=== PATIENT | male | born 1940 | race Caucasian/White ===

== ENCOUNTER 2018-03-23 06:29 | Day surgery (SDC) | payer MEDICARE, OTHER ==
[2018-03-22 10:39] VITALS: BMI 30.4
[2018-03-23] MEDS ORDERED: Heparin 1000 UNIT/NS 500ML(OR) 500 ML ONE ×2 (07:34→07:35)
[2018-03-23] MEDS ORDERED: Midazolam HCl 2 mg/2 ml Vial ONE (08:41)
[2018-03-23] MEDS ORDERED: Verapamil 5 MG/2 ML VIAL ONE (08:42)
[2018-03-23] MEDS ORDERED: Nitroglycerin 100MG/250ML BOT 250 ML ONE (08:42)
[2018-03-23] MEDS ORDERED: Heparin 10,000 UNITS/1 ML VIAL ONE (08:42)
[2018-03-23] MEDS ORDERED: Fentanyl 100 MCG/2 ML VIAL ONE (08:42)
[2018-03-23] MEDS ORDERED: Iopamidol 370 76% 100 ML VIAL ONE (10:45)
--- NOTE | 2018-03-23 15:17 | EKG ---
Test Reason : PREOP Blood Pressure : / mmHG Vent. Rate : 051 BPM Atrial Rate : 051 BPM P-R Int : 210 ms QRS Dur : 092 ms QT Int : 438 ms P-R-T Axes : 061 013 002 degrees QTc Int : 403 ms Sinus bradycardia with 1st degree A-V block Otherwise normal ECG Confirmed by LISANDRA LOPEZ, BRIDGET ([id number]) on 03/23/2018 3:17:05 PM Referred By: CAROLYNN Confirmed By:BRIDGET FRY MD
== END 2018-03-23 11:55 | disposition home or self-care (01) ==
LOC: CCL 06:29
PROVIDERS: ATTEND Internal Medicine Cardiovascular Disease
PROC: 4A023N7 Measurement of Cardiac Sampling and Pressure, Left Heart, Percutaneous Approach (ICD-10-PCS; principal; 2018-03-23)
PROC: B2111ZZ Fluoroscopy of Multiple Coronary Arteries using Low Osmolar Contrast (ICD-10-PCS; 2018-03-23)
DX: I25.10 Atherosclerotic heart disease of native coronary artery without angina pectoris (principal); I10 Essential (primary) hypertension; E78.00 Pure hypercholesterolemia, unspecified; F41.9 Anxiety disorder, unspecified; M19.90 Unspecified osteoarthritis, unspecified site; Z79.82 Long term (current) use of aspirin; Z79.899 Other long term (current) drug therapy
CPT/HCPCS: 93005; 93458; C1769; 93010; 99152; J1644; J2250; J3010

== ENCOUNTER 2019-06-07 14:09 | Outpatient (CLI) | payer MEDICARE, OTHER ==
--- NOTE | 2019-06-07 15:38 | CT ---
CT ANGIOGRAM THORAX WITH CONTRAST: (CTA pulmonary angiogram) DATE: 06/07/2019 HISTORY: 78-year-old male with pulmonary hypertension. TECHNIQUE: IV injection of iodinated contrast. Scan acquisition timing attempted to coincide with iodinated contrast bolus reaching maximal density in pulmonary arteries. 3-D MIP reconstructions. FINDINGS: No pulmonary thromboembolism is identified. Pulmonary trunk caliber is not greater than that of the t horacic aorta. No evidence of right ventricular strain. No pleural effusion, consolidation, or pneumothorax. No pericardial effusion. Nonspecific multiple mildly enlarged mediastinal and bilateral hilar lymph nodes. Platelike metallic device at left atrial appendage. Prominent interstitial markings diffusely. 0.6 cm noncalcified pulmonary nodule at posterior edge of left upper lobe near ap ex. No consolidation. Sternotomy wires. IMPRESSION: 1. No evidence of pulmonary thromboembolism. 2. Left atrial closure device. 3. Nonspecific 6 mm tiny pulmonary nodule at apicoposterior segment of left upper lobe. Based on the recently revised Fleischner Society guidelines, no follow-up is necessary if the patient is not a high risk patient for lung cancer. If there is increased risk due to smoking or other factors, a sing le 12 month follow-up chest CT is recommended.
[2019-06-07] MEDS ORDERED: Iopamidol-370 76% 500 ML 1 ML ONE (16:28)
== END 2019-06-07 14:10 | disposition home or self-care (01) ==
LOC: BICCT 14:09
PROVIDERS: ATTEND Internal Medicine Cardiovascular Disease
DX: I27.20 Pulmonary hypertension, unspecified (principal); R91.1 Solitary pulmonary nodule
CPT/HCPCS: 71275; 82565; Q9967

== ENCOUNTER 2020-10-08 11:11 | Outpatient (CLI) | payer MEDICARE, OTHER | END 2020-10-08 11:12 | disposition home or self-care (01) | LOC: CT 11:11 | PROVIDERS: ATTEND Internal Medicine Cardiovascular Disease | DX: R91.1 Solitary pulmonary nodule (principal); I51.7 Cardiomegaly; I25.10 Atherosclerotic heart disease of native coronary artery without angina pectoris | CPT/HCPCS: 71260; 82565 ==

== ENCOUNTER 2020-10-20 16:08 | Outpatient (CLI) | payer MEDICARE, OTHER ==
[2020-10-20 17:56] LABS: #Basophils 0.1 10x3/uL (0.0-0.2); #Eosinphils 0.1 10x3/uL (0.0-0.5); #Monocytes 0.9 10x3/uL (0.0-1.1); #Neutrophils 5.6 10x3/uL (1.5-8.4); %Basophils 0.6 % (0.0-2.0); %Eosinophils 0.9 % (0.0-6.0); %Lymphocytes 35.7 % (18.0-47.0); %Monocytes 8.6 % (0.0-10.0); %Neutrophils 53.8 % (40.0-75.0); Hemoglobin 15.1 g/dL (13.5-17.5); Mean Corpuscular HGB CONC 32.8 g/dL (32.0-36.0); Mean Corpuscular Hemoglobin 32.8 pg (27.0-33.0); Mean Platelet Volume 11.3 fl (7.4-10.4); Platelet Count 193 10x3/uL (150-450); RBC Distribution Width 13.2 % (11.5-14.5); White Blood Cell (WBC) Count 10.3 10x3/uL (3.5-10.5)
[2020-10-20 18:11] LABS: INR-International Normal Ratio 1.1; PTT 27.1 sec (22.0-33.0); Prothrombin Time 11.5 sec (9.5-12.1)
[2020-10-20 18:14] LABS: ALT (SGPT) 24 U/L (8-55); AST (SGOT) 26 U/L (5-34); Albumin 4.5 g/dL (3.4-4.8); Alkaline Phosphatase 72 U/L (40-110); Anion Gap 13 mmol/L (10-20); BUN (Urea Nitrogen) 29 mg/dL (8.4-25.7); Bilirubin, Total 0.9 mg/dL (0.2-1.2); Calc. Creatinine Clearance 0 mL/min (70-130); Calcium 9.3 mg/dL (7.8-10.44); Carbon Dioxide 27 mmol/L (23-31); Cardiac Risk 3.8 (Less than 4.5); Chloride 102 mmol/L (98-107); Cholesterol 167 mg/dl (< 200 Desired); Glucose 84 mg/dL (83-110); HDL Cholesterol 44 mg/dL (>60 Neg Risk); LDL Cholesterol, Calculated 101 mg/dL; Potassium 4.3 mmol/L (3.5-5.1); Protein, Total 7.5 g/dL (5.8-8.1); Sodium 138 mmol/L (136-145); Triglycerides 108 mg/dL (Less than 150)
[2020-10-20 18:34] LABS: Free T4 (Free Thyroxine) 0.71 ng/dL (0.70-1.48); Thyroid Stimulating Hormone 21.8242 uIU/mL (0.35-4.94)
[2020-10-21 05:36] LABS: SARS-CoV-2 PCR by NAA Not Detected (NotDetected)
== END 2020-10-20 16:09 | disposition home or self-care (01) ==
LOC: LABBT 16:08
PROVIDERS: ATTEND Internal Medicine Cardiovascular Disease
DX: Z01.812 Encounter for preprocedural laboratory examination (principal); Z20.822 Contact with and (suspected) exposure to COVID-19
CPT/HCPCS: 80061; 84439; 85610; 85730; U0003; U0005; 80053; 84443; 85025; 87635

== ENCOUNTER 2021-12-20 11:58 | Outpatient (CLI) | payer MEDICARE, OTHER ==
[2021-12-20] MEDS ORDERED: Iopamidol 370 76% 100 ML VIAL ONE (14:58)
== END 2021-12-20 11:59 | disposition home or self-care (01) ==
LOC: CT 11:58
PROVIDERS: ATTEND Internal Medicine Cardiovascular Disease
DX: I71.2 Thoracic aortic aneurysm, without rupture (principal)
CPT/HCPCS: 71275; 82565; Q9967

== ENCOUNTER 2023-03-14 09:44 | Outpatient (CLI) | payer MEDICARE, OTHER ==
[~2023-03-14 09:44] MED LIST: Iopamidol-370 76% 500 ML MDV (1 ML CHARGE) ONE
== END 2023-03-14 09:45 | disposition home or self-care (01) ==
LOC: BICCT 09:44
PROVIDERS: ATTEND Internal Medicine Cardiovascular Disease
DX: I71.21 Aneurysm of the ascending aorta, without rupture (principal)
CPT/HCPCS: 71275; 82565; Q9967